=== PATIENT | female | born 1975 | race Hispanic/Latino ===

== ENCOUNTER 2018-05-05 08:45 | Outpatient (CLI) | payer OTHER ==
--- NOTE | 2018-05-05 09:59 | ULT ---
ULTRASOUND ABDOMEN LIMITED: (RIGHT UPPER QUADRANT) HISTORY: 42-year-old female with right upper quadrant abdominal pain. FINDINGS: The gallbladder has normal wall thickness and has no evidence of gallstones or sludge. The hepatic e chogenicity is diffusely increased, consistent with fatty liver. The right kidney has normal echogen icity and has no hydronephrosis. The pancreas is obscured by bowel gas. There is no biliary dilatio n. The common duct caliber is 3 mm. IMPRESSION: 1) Hepatic steatosis. 2) No other pathology identified. 3) Pancreas not visualized. amparo POS: SOREN
== END 2018-05-05 08:46 | disposition home or self-care (01) ==
LOC: BICULT 08:45
PROVIDERS: ATTEND Internal Medicine
DX: R10.11 Right upper quadrant pain (principal); K76.0 Fatty (change of) liver, not elsewhere classified
CPT/HCPCS: 76705